=== PATIENT | male | born 1960 | race Caucasian/White ===

== ENCOUNTER 2017-07-07 13:25 | Emergency (ER) | payer SELFPAY ==
[~2017-07-07] VITALS: Ht 180.3 cm; Wt 113.4 kg
--- NOTE | 2017-07-07 13:42 | ED GENERAL ADULT ---
History of Present Illness General Chief Complaint: Allergy Symptoms Stated Complaint: UVULA SWOLLEN, SOB PER PT, GETTING WORSE 99% O2 Source: patient Exam Limitations: no limitations Vital Signs & Intake/Output Vital Signs & Intake/Output Vital Signs Date Time Temp Pulse Resp B/P B/P Pulse O2 O2 Flow FiO2 Mean Ox Delivery Rate 07/07 1727 98.5 105 18 142/79 97 Room Air 07/07 1551 98.6 81 18 137/79 98 Room Air 07/07 1413 96 Room Air 07/07 1329 97.4 99 20 168/92 98 Room Air Allergies Coded Allergies: aspirin (UNKNOWN 07/07/17) iodine (UNKNOWN 07/07/17) Reconcile Medications Gabapentin (Neurontin) 100 MG CAPSULE 1 CAP PO TID NUMBNESS IN FEET Prednisone 50 MG TABLET 1 TAB PO DAILY UVULAR SWELLING Triage Note: PT STATES HIS UVULA IS SWOLLEN AND HE IS FEELING SOB,. PT REPORTS HE WOKE UP A WHILE AGO AND NOTICED IT. PT STATES THIS HAS HAPPEND TO HIM IN THE PAST. PT STATES HE HAD TO GO TO THE OR AND HAVE IT DRAINED. Triage Nurses Notes Reviewed? yes Onset: Abrupt Duration: day(s): Timing: recent history No Modifying Factors: none HPI: 57-year-old male comes into the emergency room for multiple complaints. Patient reports that he's been having chronic numbness in his feet for 6 months. He reports that today he woke up and his uvula was swollen. He felt like he was having some difficulty breathing. He reports that he started to breathe heavily and he gets some tingling in his hands. He came in here for further evaluation. Denies any chest pain or shortness of breath. Past History Travel History Traveled to [place] past 21 day No Medical History Any Pertinent Medical History? none Surgical History Surgical History: non-contributory Psychosocial History Who do you live with Patient/Self What is your primary language P[place]in[place] Tobacco Use: Quit >30 days ago ETOH Use: heavy use Illicit Drug Use: denies illicit drug use Family History Hx Contributory? No Review of Systems Review of Systems Constitutional: Reports: no symptoms. EENTM: Reports: see HPI. Respiratory: Reports: no symptoms. Cardiovascular: Reports: no symptoms. GI: Reports: no symptoms. Genitourinary: Reports: no symptoms. Musculoskeletal: Reports: no symptoms. Skin: Reports: no symptoms. Neurological/Psychological: Reports: see HPI. Hematologic/Endocrine: Reports: no symptoms. Immunologic/Allergic: Reports: no symptoms. All Other Systems: Reviewed and Negative Physical Exam Physical Exam General Appearance: well developed/nourished, no apparent distress, alert, awake Head: atraumatic, normal appearance Eyes: Bilateral: normal appearance, EOMI. Ears, Nose, Throat: normal ENT inspection, hearing grossly normal, UVULA SWOLLEN AND EDEMATOUS, OTHERWISE POSTERIOR PHARYNX UNREMARKABLE, NO TONSILLAR LYMPHADENOPATHY, Neck: normal inspection, supple, full range of motion Respiratory: normal breath sounds, no respiratory distress Cardiovascular: regular rate/rhythm Back: normal inspection Extremities: normal inspection, normal range of motion Neurologic/Psych: awake, alert, oriented x 3 Skin: intact, normal color Core Measures ACS in differential dx? No CVA/TIA Diagnosis: No Sepsis Present: No Sepsis Focused Exam Completed? No Progress Differential Diagnoses I considered the following diagnoses in my evaluation of the patient: Allergic reaction, pharyngitis, hyperventilation, anxiety, peripheral neuropathy, MS, Plan of Care: Orders Procedure Date/time Status THROAT CULTURE W/QUICK STREP 07/07 1537 Active Telemetry/Nut [place] 07/07 1342 Active TROPONIN LEVEL 07/07 1342 Complete COMPREHENSIVE METABOLIC PANEL 07/07 1342 Complete CBC WITHOUT DIFFERENTIAL 07/07 1342 Complete EKG 07/07 1342 Active Laboratory Tests 07/07/17 1405: Anion Gap 17 H, Estimated GFR > 60, BUN/Creatinine Ratio 15.8, Glucose 123 H, Calcium 9.4, Total Bilirubin 0.6, AST 79 H, ALT 75 H, Alkaline Phosphatase 98, Troponin I < 0.01, Total Protein 7.1, Albumin 4.1, Globulin 3.0, Albumin/ Globulin Ratio 1.4, CBC w Diff NO MAN DIFF REQ, RBC 5.05, MCV 94.2 H, MCH 32.6 H, MCHC 34.6, RDW 14.1, MPV 7.0 L, Gran % 46.8, Lymphocytes % 45.1, Monocytes % 7.4, Eosinophils % 0.2, Basophils % 0.5, Absolute Granulocytes 2.9, Absolute Lymphocytes 2.7, Absolute Monocytes 0.5, Absolute Eosinophils 0, Absolute Basophils 0 Diagnostic Imaging: Viewed by Me: Radiology Read. Discussed w/RAD: Radiology Read. Radiology Impression: PATIENT: MICHELINE BAILEY PRESENT AGE: 57 PATIENT ACCOUNT NO: [id number] : 56 LOCATION: [facility] ORDERING PHYSICIAN: Riki RIVAS SERVICE DATE: 07/07/17 EXAM TYPE: RAD - XRY-CHEST XRAY, TWO VIEWS EXAMINATION: XR CHEST CLINICAL INFORMATION: Shortness of breath COMPARISON: 10/17/2016 TECHNIQUE: 2 views of the chest were obtained. FINDINGS: No focal consolidation, pulmonary edema, or pleural effusion. Stable cardiomediastinal silhouette. IMPRESSION: No acute cardiopulmonary findings. DICTATED BY: Darian Mckeon MD DATE/TIME DICTATED:07/07/171400 FINANCIAL PROJECT MANAGER:SCOTT DATE/TIME TRANSCRIBED:07/07/171400 CONFIDENTIAL, DO NOT COPY WITHOUT APPROPRIATE AUTHORIZATION. <Electronically signed in Other Vendor System> SIGNED BY: Darian Mckeon MD 07/07/170 Initial ED EKG: normal sinus rhythm, rate (83) Comments: 07/07/2017 5:42:54 PM Patient clinically looks well. Patient symptoms have resolved. He has been having chronic numbness issues in his feet for about 6 months. Likely neuropathy but patient needs follow-up. He has not had any chest pain or shortness of breath. A cardiac workup was performed due to his shortness of breath which was more hyperventilation secondary to him feeling like he couldn't breathe with his throat swollen in the back. His lungs are clear to auscultation. He does not appear to be in any respiratory distress. His symptoms resolved after medication here. On discharge she is asymptomatic other than the chronic numbness in his feet which has been going on for 6 months. Case was discussed with Dr. Johansen. Return if any other concerns worsening symptoms. It is recommended that he follow-up with his primary care doctor. Departure Departure Disposition: HOME OR SELF CARE Condition: Stable Clinical Impression Primary Impression: Uvular swelling Referrals: Gianna RILEY,Nicanor Gordon (PCP/Family) Additional Instructions: Take prednisone as prescribed. Take Neurontin as prescribed. Follow-up with your PCP. Return if any concerns worsening symptoms. Departure Forms: Customer Survey General Discharge Information Prescriptions: Current Visit Scripts Prednisone 1 TAB PO DAILY #4 TAB Gabapentin (Neurontin) 1 CAP PO TID #90 CAP Critical Care Note Critical Care Note Critical Care Time: non-applicable
--- NOTE | 2017-07-07 14:04 | RADIOLOGY REPORT ---
EXAMINATION: XR CHEST CLINICAL INFORMATION: Shortness of breath COMPARISON: 10/17/2016 TECHNIQUE: 2 views of the chest were obtained. FINDINGS: No focal consolidation, pulmonary edema, or pleural effusion. Stable cardiomediastinal silhouette. IMPRESSION: No acute cardiopulmonary findings.
[2017-07-07 14:14] LABS: ABSOLUTE BASOPHIL COUNT 0 /CUMM (0.0-0.2); ABSOLUTE EOSINOPHIL COUNT 0 /CUMM (0.0-0.7); ABSOLUTE GRANULOCYTE CT 2.9 /CUMM (1.4-6.5); ABSOLUTE LYMPH COUNT 2.7 /CUMM (1.2-3.4); ABSOLUTE MONOCYTE COUNT 0.5 /CUMM (0.10-0.60); BASOPHIL % 0.5 % (0.0-2.0); EOSINOPHIL % 0.2 % (0-5); GRANULOCYTE % 46.8 % (42.2-75.2); HEMATOCRIT 47.6 % (42-52); MEAN CORPUSCULAR HGB 32.6 PG (27.0-31.0); MEAN CORPUSCULAR HGB CONC 34.6 G/DL (33.0-37.0); MEAN CORPUSCULAR VOLUME 94.2 FL (80.0-94.0); PLATELET COUNT 271 /CUMM (130-400); RBC DISTRIBUTION WIDTH 14.1 % (11.5-14.5); RED BLOOD CELL CT 5.05 /CUMM (4.70-6.10); WHITE BLOOD CELL COUNT 6.1 /CUMM (4.8-10.8)
[2017-07-07] MEDS ORDERED: PREDNISONE50 M1 PO (17:08)
[2017-07-07] MEDS ORDERED: NEURONTIN100 M1 PO (17:08)
[2017-07-07 17:27] VITALS: BP 142/79
== END 2017-07-07 17:47 ==
LOC: ERH 13:25
PROVIDERS: Physician Assistant Medical
DX: R22.1 Localized swelling, mass and lump, neck (principal); R06.00 Dyspnea, unspecified
CPT/HCPCS: 71046; 93005; 93010